=== PATIENT | male | born 1980 | race Caucasian/White ===

== ENCOUNTER 2020-03-05 16:06 | Emergency (ER) | payer SELFPAY ==
[~2020-03-05] VITALS: Ht 175.3 cm; Wt 79.0 kg
[2020-03-05 20:47] VITALS: BP 121/74
== END 2020-03-05 20:48 | disposition home or self-care (01) ==
LOC: ER 16:06
DX: S60.452A Superficial foreign body of right middle finger, initial encounter (principal); L03.011 Cellulitis of right finger; W49.04XA Ring or other jewelry causing external constriction, initial encounter; Y93.89 Activity, other specified; Y92.9 Unspecified place or not applicable
CPT/HCPCS: 99281